=== PATIENT | female | born 1970 | race American Indian/Alaskan Native ===

== ENCOUNTER 2021-02-16 17:25 | Emergency (ER) | payer MEDICAID ==
[2021-02-16] MEDS ORDERED: ASPIRIN 81 MG TAB CHEW PO ONE (17:45)
[2021-02-16] MEDS ORDERED: ONDANSETRON 4 MG/2 ML INJ IV STA (17:46)
[2021-02-16] MEDS ORDERED: KETOROLAC 30 MG/1 ML INJ IV STA (17:46)
[2021-02-16] MEDS ORDERED: NITROGLYCERIN 0.1 MG PATCH 24HR TD ONE (18:30)
[2021-02-16 18:40] VITALS: BP 116/55
[2021-02-16 18:43] LABS: Basophils # (Auto) 0.1 K/mm3 (0.0-0.1); Basophils % (Auto) 0.8 % (0.0-1.8); Eosinophils % (Auto) 0.2 % (0.0-4.3); Hematocrit 44.4 % (30.3-42.9); Hemoglobin 14.3 gm/dl (10.1-14.3); Lymphocytes # (Auto) 2.4 K/mm3 (1.2-5.4); Lymphocytes % (Auto) 28.8 % (13.4-35.0); Mean Corpuscular HGB Conc 32 % (30-34); Mean Corpuscular Volume 92 fl (79-97); Monocytes # (Auto) 0.8 K/mm3 (0.0-0.8); Monocytes % (Auto) 9.5 % (0.0-7.3); Platelet Count 397 K/mm3 (140-440); Red Blood Count 4.82 M/mm3 (3.65-5.03); Red Cell Distribution Width 14.8 % (13.2-15.2)
[2021-02-16 18:48] LABS: Alanine Aminotransferase 17 units/L (7-56); Albumin 3.2 g/dL (3.9-5); BUN/Creatinine Ratio 14; Blood Urea Nitrogen 14 mg/dL (7-17); Calcium 8.6 mg/dL (8.4-10.2); Hemolysis Index 39
--- NOTE | 2021-02-16 19:30 | XRay Report ---
CHEST 2 VIEWS INDICATION: Chest Pain. COMPARISON: None FINDINGS: Support devices: None. Heart: Within normal limits. Lungs/pleura: No acute air space or interstitial disease. No pneumothorax. Additional findings: None. IMPRESSION: No acute findings. Signer Name: Gulshan Whaley Jr, MD Signed: 02/16/2021 7:26 PM Workstation Name: [id number]
--- NOTE | 2021-02-16 23:11 | Emergency Department Report ---
ED Chest Pain HPI - General Chief Complaint: Chest Pain Stated Complaint: CHEST PAIN Time Seen by Provider: 02/16/21 17:43 Source: patient Mode of arrival: Ambulatory Limitations: No Limitations - History of Present Illness Initial Comments: 42-year-old female smoker presents to the emergency emerge department complaining of about 45-minute history of atraumatic chest pain of unknown etiology chest is eight by an aching. Ports no hemoptysis or hematemesis hematochezia, no fever, chills, sweats. No trauma, no nausea, no vomiting, no diarrhea. Chest pain does not appear to be associated with with mood overall or breathing but palpation and movement does worsen the pain appears to be located more so on the side of the left breast MD Complaint: chest pain Pain Location: left chest Pain Radiation: none Severity: mild Severity scale (0 -10): 10 Quality: dull (Dull burning) Consistency: constant re: diaphoresis. denies: vomting, dyspnea, sense of impending doom, other - Related Data Previous Rx's Medication Instructions Recorded Last Taken Type Ketorolac [Toradol] 10 mg PO Q6H PRN #20 tablet 02/16/21 Unknown Rx Allergies Allergy/AdvReac Type Severity Reaction Status Date / Time No Known Allergies Allergy Verified 02/16/21 17:27 Heart Score - HEART Score History: Slightly suspicious EKG: Normal Age: 45-65 Risk factors: 1-2 risk factors Troponin: < normal limit HEART Score: 2 - EKG Read Time Time EKG Completed: 17:53 EKG Read Time: 17:59 ED Review of Systems ROS: Stated complaint: CHEST PAIN Other details as noted in HPI Comment: All other systems reviewed and negative ED Past Medical Hx - Medications Home Medications: Home Medications Medication Instructions Recorded Confirmed Last Taken Type Ketorolac [Toradol] 10 mg PO Q6H PRN #20 tablet 02/16/21 Unknown Rx ED Physical Exam - General Limitations: No Limitations General appearance: alert, in no apparent distress - Head Head exam: Present: atraumatic, normocephalic - Eye Eye exam: Present: normal appearance - ENT ENT exam: Present: mucous membranes moist - Neck Neck exam: Present: normal inspection, full ROM - Respiratory Respiratory exam: Present: normal lung sounds bilaterally. Absent: respiratory distress, wheezes, rales, rhonchi - Cardiovascular Cardiovascular Exam: Present: regular rate, normal rhythm. Absent: systolic murmur, diastolic murmur, rubs, gallop - GI/Abdominal GI/Abdominal exam: Present: soft, normal bowel sounds. Absent: tenderness, guarding - Extremities Exam Extremities exam: Present: normal inspection - Back Exam Back exam: Present: normal inspection, full ROM. Absent: CVA tenderness (R), CVA tenderness (L) - Neurological Exam Neurological exam: Present: alert, oriented X3, CN II-XII intact, normal gait - Psychiatric Psychiatric exam: Present: normal affect, normal mood - Skin Skin exam: Present: warm, dry, intact, normal color. Absent: rash ED Course Vital Signs 02/16/21 02/16/21 02/16/21 17:26 18:12 18:17 Temperature 98 F Pulse Rate 98 H 76 Respiratory 20 18 Rate Blood Pressure Blood Pressure 139/73 116/75 [Left] O2 Sat by Pulse 99 96 96 Oximetry 02/16/21 18:39 Temperature Pulse Rate 76 Respiratory Rate Blood Pressure 116/55 Blood Pressure [Left] O2 Sat by Pulse Oximetry CESAR score - Cesar Score Age > 65: (0) No Aspirin use within the Past 7 Days: (0) No 3 or more CAD Risk Factors: (0) No 2 or more Angina events in past 24 hrs: (0) No Known CAD with more than 50% Stenosis: (0) No Elevated Cardiac Markers: (0) No ST Deviation Greater than 0.5mm: (0) No CSEAR Score: 0 ED Medical Decision Making - Lab Data Result diagrams: 02/16/21 18:13 02/16/21 18:13 - Radiology Data Radiology results: report reviewed [address] [address] XRay Report Signed Patient: CHARLENE CHATMAN MR#: [id number] 0 : 1970 Acct:[id number] Age/Sex: 50 / F ADM Date: 02/16/21 Loc: ED Attending Dr: Ordering Physician: KEMAL GARCIA Date of Service: 02/16/21 Procedure(s): XR chest routine 2V Accession Number(s): [id number] cc: KEMAL GARCIA Fluoro Time In Minutes: CHEST 2 VIEWS INDICATION: Chest Pain. COMPARISON: None FINDINGS: Support devices: None. Heart: Within normal limits. Lungs/pleura: No acute air space or interstitial disease. No pneumothorax. Additional findings: None. IMPRESSION: No acute findings. Signer Name: Gulshan Whaley Jr, MD Signed: 02/16/2021 7:26 PM Workstation Name: [id number] Transcribed By: TTR Dictated By: GULSHAN WHALEY JR, MD Electronically Authenticated By: GULSHAN WHALEY JR, MD Signed Date/Time: 02/16/211925 DD/ 25 TD/TT: Print Cancel - Medical Decision Making This patient presents with chest pain that is very unlikely angina or acute coronary syndrome. The emergency department evaluation has not identified any cause for suspicion that this chest pain has a cardiac etiology. Based on their history, EKG (which showed no evidence of ischemia or infarction) and imaging, in addition to the patient's physical exam, I see no evidence at this time for a malignant etiology for the patient's chest pain. There is no acute evidence for pulmonary embolus, acute myocardial infarction, pneumothorax, Boerhaeve syndrome, cardiac tamponade, thoracic artery dissection, or any other emergent cardiac, pulmonary or aortic pathology. Given the low pre-test probability for cardiac etiology of chest pain and the absence of any sign of ischemia or infarction, discharge for outpatient follow-up and further evaluation is reasonable. I have explained to the patient that even though a cardiac problem is very unlikely, follow-up and further testing is required to reduce further the already small uncertainty that exists. Other life-threatening diagnoses have been considered. The patient understands the need to return immediately if their symptoms worsen or they develop any new symptoms, and not to engage in any significant exertional activity until follow-up is obtained. Critical care attestation.: If time is entered above; I have spent that time in minutes in the direct care of this critically ill patient, excluding procedure time. ED Disposition Clinical Impression: Chest pain Disposition: HOME / SELF CARE / HOMELESS Is pt being admited?: No Does the pt Need Aspirin: No Condition: Stable Instructions: Nonspecific Chest Pain, Adult Additional Instructions: You were evaluated emergency department today for chest pain. 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 Please schedule an appointment for follow-up with your primary care physician as soon as possible. Return to emergency department if you expands worsening uncontrolled chest pain, shortness of breath, lightheadedness, feeling faint, nausea, vomiting or any other concerning symptoms. Prescriptions: Ketorolac [Toradol] 10 mg PO Q6H PRN #20 tablet PRN Reason: Pain Referrals: TIANNA WALTON MD [Staff Physician] - 3-5 Days PRIMARY CAREMD [Primary Care Provider] - 3-5 Days
--- NOTE | 2021-02-17 17:39 | Electrocardiograph Report ---
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
== END 2021-02-16 23:45 | disposition home or self-care (01) ==
LOC: ED 17:25
DX: R07.89 Other chest pain (principal)
CPT/HCPCS: 36415; 71046; 80053; 83690; 84484; 84703; 85025; 93005; 96374; 96375; 99284; J1885; J2405